=== PATIENT | female | born 1960 | race Caucasian/White ===

== ENCOUNTER → 2018-01-31 12:31 | Outpatient (CLI) | payer OTHER, SELFPAY ==
--- NOTE | 2018-01-31 | DI.MRI.S_ITS ---
PROCEDURE: MR LUMBAR SPINE WO CON INDICATIONS: SCIATICA TECHNIQUE: Noncontrast sagittal T1 spin echo and T2 fast echo, sagittal STIR, axial T1 and T2 fast spin echo through the lumbar spine. In cases with scoliosis, additional coronal T2 fast spin echo may be performed. COMPARISON: [facility], , SPINE LUMB MIN 4VW, 09/13/2012, 16:36. FINDINGS: Image quality: Excellent. Alignment and Curvature: 5 lumbar type vertebral bodies are present by plain film. Bone Marrow: Marrow is of normal overall signal. No acute vertebral body compression fractures. There is moderate reactive signal within the endplates adjacent to the L4-L5 and L5-S1 intervertebral discs. Mild reactive signal within the endplates adjacent to the L3-L4 intervertebral disc. L1 hemangioma is present. Spinal Cord: Conus medullaris terminates at the L1-L2 disc space level. Visualized cord demonstrates normal signal and size. Paraspinous Soft Tissues: No paravertebral masses. Multiple calculi within the gallbladder lumen are present. L1-L2: Minimal disc desiccation. Mild diffuse disc bulge. Minimal canal stenosis. No foraminal stenosis. L2-L3: Mild disc desiccation and mild diffuse disc bulge. Minimal facet hypertrophy. Mild canal stenosis. Mild bilateral foraminal stenosis. L3-L4: Mild disc height loss and desiccation. Mild diffuse disc bulge. Moderate facet hypertrophy bilaterally. Mild epidural lipomatosis. Mild canal stenosis. Mild bilateral foraminal stenosis. L4-L5: Moderate disc height loss desiccation. Moderate diffuse disc bulge. Moderate facet and ligamentum flavum hypertrophy bilaterally. Small bilateral facet joint effusions. Severe canal stenosis. Moderate bilateral foraminal stenosis. L5-S1: Moderate disc height loss desiccation. Moderate diffuse disc bulge/osteophyte. Mild bilateral facet hypertrophy. Mild canal stenosis. Moderate bilateral foraminal stenosis. IMPRESSION: 1. Cholelithiasis. 2. Multilevel degenerative disc and facet disease, as well as ligamentum flavum hypertrophy and epidural lipomatosis. 3. Multilevel canal stenoses, worst at L4-L5, where there is severe canal stenosis present. 4. Multilevel foraminal stenoses, worst at L4-L5 and L5-S1 bilaterally, where there are moderate foraminal stenoses present. Dictated by: Esme Carballo M.D. on 01/31/2018 at 14:28 Approved by: Esme Carballo M.D. on 01/31/2018 at 14:32
== END ==
PROVIDERS: PCP Family Medicine; Visit Provider Family Medicine
DX: M51.16 Intervertebral disc disorders with radiculopathy, lumbar region (principal); K80.20 Calculus of gallbladder without cholecystitis without obstruction; M48.061 Spinal stenosis, lumbar region without neurogenic claudication; M51.17 Intervertebral disc disorders with radiculopathy, lumbosacral region; M48.07 Spinal stenosis, lumbosacral region; E88.2 Lipomatosis, not elsewhere classified
CPT/HCPCS: 72148

== ENCOUNTER → 2024-02-17 18:58 | Outpatient (CLI) | payer OTHER, SELFPAY ==
--- NOTE | 2024-02-17 17:00 | DI.MRI.S_ITS ---
PROCEDURE: MR THORACIC SPINE WO CON INDICATIONS: bilateral leg weakness TECHNIQUE: Noncontrast sagittal T1 spine echo and T2 fast spin echo, sagittal STIR, and T2 fast spin echo through the thoracic spine. COMPARISON: [facility], MR, MR LUMBAR SPINE WO CON, 02/17/2024, 20:42. [facility], MR, MR CERVICAL SPINE WO CON, 02/17/2024, 19:27. FINDINGS: Image quality: Excellent. Alignment and Curvature: There is normal bony alignment. Bone Marrow: Marrow is of normal overall signal. No acute vertebral body compression fractures. Spinal Cord: Visualized spinal cord is normal in size and signal. Paraspinous Soft Tissues: No paravertebral masses. Miscellaneous: On axial images, central canal appears widely patent at all scanned levels. Trace disc bulge T1-2, T2-3, T3-4, T4-5, T5-6, T6-7, T7-8, T8-9, T9-10, T10-11. Minimal to mild right foraminal narrowing T10-11, T9-10 IMPRESSION: Multilevel trace disc bulges with minimal scattered foraminal narrowing. No spinal stenosis. Dictated by: Kaci Hutchinson M.D. on 02/20/2024 at 15:48 Approved by: Kaci Hutchinson M.D. on 02/20/2024 at 15:59
--- NOTE | 2024-02-17 19:08 | DI.MRI.S_ITS ---
PROCEDURE: MR LUMBAR SPINE WO CON INDICATIONS: bilateral sciatica worse on right. constant lower back pains TECHNIQUE: Noncontrast sagittal T1 spin echo and T2 fast echo, sagittal STIR, and T2 fast spin echo through the lumbar spine. In cases with scoliosis, additional coronal T2 fast spin echo may be performed. COMPARISON: [facility], MR, MR LUMBAR SPINE WO CON, 01/31/2018, 13:17. FINDINGS: Transitional anatomy. There is partial lumbarization of the S1 vertebral body. Numbering convention is consistent with prior exam. Alignment and Curvature: There is normal bony alignment. Bone Marrow: Marrow is of normal overall signal. No acute vertebral body compression fractures. Spinal Cord: Conus medullaris terminates at the L1 level. Visualized cord demonstrates normal signal and size. Paraspinous Soft Tissues: No paravertebral masses. T12-L1: Normal appearance. L1-L2: Normal appearance. L2-L3: Disc bulge and arthropathy. Mild central stenosis. Moderate bilateral foraminal stenosis L3-L4: Disc bulge and arthropathy. Ligamentum flavum laxity. Moderate central stenosis. Mild bilateral foraminal stenosis. L4-L5: Disc bulge arthropathy. Severe central stenosis. Moderate bilateral foraminal stenosis greater on the left L5-S1: Disc bulge and arthropathy. Mild central stenosis. Moderate bilateral foraminal stenosis IMPRESSION: Multilevel degenerative disc disease and arthropathy results in varying degrees of central and foraminal stenosis including severe central stenosis L4-5 Approved by: Terry Dhillon M.D. on 02/20/2024 at 14:47
--- NOTE | 2024-02-17 19:58 | DI.MRI.S_ITS ---
PROCEDURE: MR CERVICAL SPINE WO CON INDICATIONS: CERVICALGIA,DORSALGIA TECHNIQUE: Noncontrast sagittal T1 spin echo and T2 fast spin echo, sagittal STIR, foraminal oblique sagittal T2 fast spin echo, and axial gradient echo or T2 fast spin echo through the cervical spine. COMPARISON: None. FINDINGS: Image quality: Excellent. Alignment and Curvature: Reversal of the normal cervical lordosis Bone Marrow: Marrow demonstrates normal overall signal. Spinal Cord: Visualized spinal cord has normal size and signal. No cerebellar tonsillar herniation. Paraspinous Soft Tissues: No paravertebral masses. Prevertebral soft tissues are normal in thickness. C2-C3: Normal appearance. C3-C4: Hypertrophic uncovertebral joints. No central stenosis. Moderate bilateral foraminal stenosis. C4-C5: Hypertrophic arthropathy. No central stenosis. No left and moderate right foraminal stenosis. C5-C6: Hypertrophic arthropathy. No central or foraminal stenosis. C6-C7: Hypertrophic arthropathy. Mild right foraminal stenosis. No central or left foraminal stenosis. C7-T1: No central or foraminal stenosis IMPRESSION: Multilevel degenerative disc disease and arthropathy results in varying degrees of foraminal stenosis including moderate foraminal stenosis C3-4 and C4-5 Approved by: Terry Dhillon M.D. on 02/20/2024 at 14:30
== END ==
PROVIDERS: PCP Family Medicine; Referring Provider Nurse Practitioner; Visit Provider Nurse Practitioner
DX: M47.812 Spondylosis without myelopathy or radiculopathy, cervical region (principal); M48.02 Spinal stenosis, cervical region; M50.31 Other cervical disc degeneration, high cervical region; M51.369 Other intervertebral disc degeneration, lumbar region without mention of lumbar back pain or lower extremity pain; M51.379 Other intervertebral disc degeneration, lumbosacral region without mention of lumbar back pain or lower extremity pain; M47.816 Spondylosis without myelopathy or radiculopathy, lumbar region; M47.817 Spondylosis without myelopathy or radiculopathy, lumbosacral region; M48.061 Spinal stenosis, lumbar region without neurogenic claudication; M48.07 Spinal stenosis, lumbosacral region; M54.9 Dorsalgia, unspecified
CPT/HCPCS: 72141; 72146; 72148